=== PATIENT | male | born 1990 | race Caucasian/White ===

== ENCOUNTER 2019-12-02 20:24 | Emergency (ER) | payer BC ==
[~2019-12-02] VITALS: Ht 182.9 cm; Wt 87.1 kg
[2019-12-02] MEDS ORDERED: ACETAMINOPHEN ES 500 MG TABLET ONE (20:59)
[2019-12-02] MEDS ORDERED: ONDANSETRON HCL/PF 4 MG/2 ML VIAL ONE (20:59)
[2019-12-02] MEDS ORDERED: ONDANSETRON HCL/PF 4 MG/2 ML VIAL IVP ONE (21:00)
[2019-12-02] MEDS ORDERED: ACETAMINOPHEN ES 500 MG TABLET PO ONE (21:00)
[2019-12-02] MEDS ORDERED: IV NS 0.9% 1,000 ML BAG IV ONE (21:00)
--- NOTE | 2019-12-02 21:00 | NUR ---
BLOOD COLLECTED AND SENT TO THE LAB
[2019-12-02 21:06] LABS: BASOPHILS # (AUTO) 0.1 /CMM (0.0-0.2); BASOPHILS % (AUTO) 0.3 % (0.0-2.0); EOSINOPHILS % (AUTO) 0.5 % (0.0-6.0); HEMATOCRIT 47 % (39-51); HEMOGLOBIN 15.8 g/dL (13.5-17.5); LYMPHOCYTES # (AUTO) 1.2 /CMM (0.8-4.8); LYMPHOCYTES % (AUTO) 6.7 % (20.0-44.0); MEAN CORPUSCULAR HGB CONC 34 g/dl (31.0-36.0); MEAN CORPUSCULAR VOLUME 91 fL (80-96); MONOCYTES # (AUTO) 1.3 /CMM (0.1-1.30); MONOCYTES % (AUTO) 7.2 % (2.0-12.0); NEUTROPHILS # (AUTO) 15.3 /CMM (1.8-8.9); NEUTROPHILS % (AUTO) 85.3 % (43.0-81.0); PLATELET COUNT (AUTO) 222 /CMM (150-450); RED BLOOD CELL COUNT(AUTO) 5.16 MIL/uL (4.5-6.0)
--- NOTE | 2019-12-02 21:17 | NUR ---
FLU SWAB SAMPLE RETRIEVED AND SENT TO THE LAB
--- NOTE | 2019-12-02 21:17 | NUR ---
XRAY AT BEDSIDE
[2019-12-02 21:20] LABS: CALCIUM, SERUM 9.5 mg/dL (8.5-10.1); CREATININE 1.2 mg/dL (0.6-1.3); POTASSIUM 3.7 mmol/L (3.5-5.1)
--- NOTE | 2019-12-02 22:27 | NUR ---
IV removed. Catheter intact and site benign. Pressure and 4x4 applied to site. No bleeding noted. Patient discharged to home in stable condition. Written and verbal after care instructions given. Patient verbalizes understanding of instruction.
[2019-12-02 22:28] VITALS: BP 118/67
== END 2019-12-02 22:28 | disposition home or self-care (01) ==
LOC: ER 20:26
DX: R55 Syncope and collapse (principal)
CPT/HCPCS: 36415; 71045; 80048; 85025; 87804 ×2; 93005; 96361; 96374; 99284; J2405; J7030